=== PATIENT | female | born 1985 | race Caucasian/White ===

== ENCOUNTER 2017-02-27 19:45 | Emergency (ER) | payer OTHER ==
[~2017-02-27] VITALS: Ht 162.6 cm; Wt 78.5 kg
[~2017-02-27 19:45] MED LIST: BENA10TA25 PO; METF1000 PO; SIMV20TA1 PO; SITA100T8 PO
[2017-02-27 19:56] VITALS: BP 142/88
--- NOTE | 2017-02-27 20:05 | NUR ---
31 Y/O F W/C/O REDNESS AND BURNING PAIN WITH DISCHARGE TO R EYE X TODAY. PT DENIES ANY FEVER, CHILLS OR INJURY TO AFFECTED EYE. MED HX DM TYPE II AND HTN. NO S/S OF DISTRESS NOTED ER MED MADE AWARE.
--- NOTE | 2017-02-27 20:05 | NUR ---
Patient ambulated to bed 07.
--- NOTE | 2017-02-27 20:21 | NUR ---
Dr. Woods evaluating patient at bedside.
[2017-02-27] MEDS ORDERED: FLUORESCEIN OPTH STRIP 1 MG OP ONE (20:25)
[2017-02-27] MEDS ORDERED: TETRACAINE HCL/PF 0.5% OPTH 4 ML BTL OP ONE (20:25)
[2017-02-27] MEDS ORDERED: TETRACAINE HCL/PF 0.5% OPTH 4 ML BTL ONE (20:34)
[2017-02-27 20:47] VITALS: BP 133/86
--- NOTE | 2017-02-27 20:47 | NUR ---
Patient discharged with v/s stable. Written and verbal after care instructions given and explained. Patient alert, oriented and verbalized understanding of instructions. Ambulatory with steady gait. All questions addressed prior to discharge. ID band removed. Patient advised to follow up with PMD OR RETURN TO ER IF CONDITION WORSENS. Rx of ERYTHROMYCIN given. Patient educated on indication of medication including possible reaction and side effects. Opportunity to ask questions provided and answered.
== END 2017-02-27 20:47 | disposition home or self-care (01) ==
LOC: MED 19:45
DX: H10.31 Unspecified acute conjunctivitis, right eye (principal); E11.9 Type 2 diabetes mellitus without complications; I10 Essential (primary) hypertension; Z90.49 Acquired absence of other specified parts of digestive tract
CPT/HCPCS: 99283

== ENCOUNTER 2017-08-07 18:35 | Emergency (ER) | payer OTHER ==
[~2017-08-07] VITALS: Ht 162.6 cm; Wt 77.8 kg
[2017-08-07 18:51] VITALS: BP 123/83
--- NOTE | 2017-08-07 19:49 | NUR ---
PT TAKEN TO BED 10
[2017-08-07] MEDS ORDERED: guaiFENesin/CODEINE 100/10MG 5 ML UDC PO ONE (19:55)
[2017-08-07] MEDS ORDERED: IBUPROFEN 800 MG TAB PO ONE (19:55)
--- NOTE | 2017-08-07 19:58 | NUR ---
FLU SWAB COMPLETED AT BEDSIDE. PT TOLERATE TX WELL. GIVEN TO PHLEB DIGNA
--- NOTE | 2017-08-07 20:35 | NUR ---
PT CAME TO ED C/O FLU-LIKE SYMPTOMS OF NON-PRODUCTIVE COUGH, BODY ACHES, NASAL CONGESTION WITH CLEAR DISCHARGE, EAR PAIN X3 DAYS. PT DENIES SOB OR DIFFICULTY BREATHING. PT DENIES SOAR THROAT. MD AWARE. CONTINUE TO MONITOR.
[2017-08-07 21:07] VITALS: BP 136/93
--- NOTE | 2017-08-07 21:07 | NUR ---
Patient discharged with v/s stable. Written and verbal after care instructions given and explained. Patient alert, oriented and verbalized understanding of instructions. Ambulatory with steady gait. All questions addressed prior to discharge. ID band removed. Patient advised to follow up with PMD. Rx of NAPROXEN CODIENE given. Patient educated on indication of medication including possible reaction and side effects. Opportunity to ask questions provided and answered.
== END 2017-08-07 21:07 | disposition home or self-care (01) ==
LOC: MED 18:35
DX: J06.9 Acute upper respiratory infection, unspecified (principal); E11.9 Type 2 diabetes mellitus without complications; I10 Essential (primary) hypertension
CPT/HCPCS: 36415; 71045; 87804; 99285

== ENCOUNTER 2018-06-26 08:49 | Day surgery (SDC) | payer OTHER ==
[~2018-06-26] VITALS: Ht 163.8 cm; Wt 70.3 kg
[2018-06-26] MEDS ORDERED: CEFAZOLIN SODIUM 1 GM/D5W PM 50 ML IV SCH (09:25)
[2018-06-26] MEDS ORDERED: INSULIN LISPRO 100 UNITS/ML VIAL SUBQ SCH ×2 (09:55→11:20)
[2018-06-26] MEDS ORDERED: INSULIN REGULAR, HUMAN 100 UNIT/ML VIAL SUBQ ONE (11:00)
[2018-06-26] MEDS ORDERED: BUPIVACAINE-MPF/EPI 0.25% 30 ML VIAL INJ ONE (12:25)
[2018-06-26] MEDS ORDERED: PROPOFOL 200 MG/20 ML VIAL IV ONE (13:31)
[2018-06-26] MEDS ORDERED: fentaNYL 0.05 MG/ML VIAL ONE (13:43)
[2018-06-26] MEDS ORDERED: MIDAZOLAM 2 MG/2 ML VIAL ONE (13:43)
[2018-06-26] MEDS ORDERED: HYDROmorphone 1 MG/ML AMP IVP PRN ×2 (13:50→14:25)
[2018-06-26] MEDS ORDERED: ONDANSETRON 4 MG/2 ML VIAL IVP PRN (13:50)
[2018-06-26] MEDS ORDERED: MORPHINE SULFATE 4 MG/ML SYR IV PRN (14:25)
[2018-06-26] MEDS ORDERED: HYDROcodone/APAP 5/325 MG 1 TAB TAB PO PRN (14:25)
[2018-06-26] MEDS ORDERED: MORPHINE SULFATE 2 MG/ML SYR IVP PRN (14:25)
[2018-06-26] MEDS ORDERED: ONDANSETRON 4 MG/2 ML VIAL IV PRN (14:25)
[2018-06-26] MEDS ORDERED: ACETAMINOPHEN 325 MG TAB PO PRN (14:25)
== END 2018-06-26 15:24 | disposition home or self-care (01) ==
LOC: MDS 08:49 → MMU 08:50 → MDS 15:24
PROVIDERS: ATTEND Surgery
DX: Z30.46 Encounter for surveillance of implantable subdermal contraceptive (principal); E66.3 Overweight; I10 Essential (primary) hypertension; E11.9 Type 2 diabetes mellitus without complications; J45.909 Unspecified asthma, uncomplicated; K21.9 Gastro-esophageal reflux disease without esophagitis; G40.909 Epilepsy, unspecified, not intractable, without status epilepticus; M19.90 Unspecified osteoarthritis, unspecified site
CPT/HCPCS: 11982; 71045; 76000; 76881; 82948; J0690; J1815; J2250; J2704; J3010; J3490; J7030; Q0092

== ENCOUNTER 2018-09-14 02:28 | Emergency (ER) | payer OTHER ==
[~2018-09-14] VITALS: Ht 165.1 cm; Wt 73.9 kg
--- NOTE | 2018-09-14 02:31 | NUR ---
PT TAKEN TO BED 9
[2018-09-14 02:34] VITALS: BP 161/108
--- NOTE | 2018-09-14 02:54 | NUR ---
Dr. Saeed evaluating patient at bedside.
[2018-09-14] MEDS ORDERED: AMOXICILLIN 500 MG CAP PO ONE (03:00)
[2018-09-14] MEDS ORDERED: IBUPROFEN 800 MG TAB PO ONE (03:00)
[2018-09-14 03:12] VITALS: BP 161/108
--- NOTE | 2018-09-14 03:19 | NUR ---
Patient discharged with v/s stable. Written and verbal after care instructions given and explained. Patient alert, oriented and verbalized understanding of instructions. Ambulatory with steady gait. All questions addressed prior to discharge. ID band removed. Patient advised to follow up with PMD. Rx of Motrin and Amoxicillin given. Patient educated on indication of medication including possible reaction and side effects. Opportunity to ask questions provided and answered.
== END 2018-09-14 03:19 | disposition home or self-care (01) ==
LOC: MED 02:28
DX: J02.8 Acute pharyngitis due to other specified organisms (principal); H66.92 Otitis media, unspecified, left ear; B96.89 Other specified bacterial agents as the cause of diseases classified elsewhere; I10 Essential (primary) hypertension; E11.9 Type 2 diabetes mellitus without complications; Z79.84 Long term (current) use of oral hypoglycemic drugs; Z79.899 Other long term (current) drug therapy
CPT/HCPCS: 99283

== ENCOUNTER 2018-10-25 20:46 | Emergency (ER) | payer OTHER ==
[~2018-10-25] VITALS: Ht 152.4 cm; Wt 74.8 kg
[2018-10-25 20:51] VITALS: BP 128/80
--- NOTE | 2018-10-25 20:55 | NUR ---
TO LOBBY A/W BED, JESSICA GALICIA NOTED
--- NOTE | 2018-10-25 21:50 | NUR ---
PT TAKEN TO RAD AT THIS TIME
--- NOTE | 2018-10-25 21:57 | NUR ---
PT RETURNED TO ER FROM RAD VIA WHEELCHAIR
--- NOTE | 2018-10-25 22:10 | NUR ---
first contact with pt. pt presents to the ed w/c/o l foot pain. pt reports pain the arch of her l foot. no obvious deromaties noted. no lessions no cuts or abrasions. -redness. -swelling. cap refill <3. peripheral pulses present. +cms. pt has hx of DM. rr even/unlabored. NAD noted.
--- NOTE | 2018-10-25 22:13 | NUR ---
PT TO BED 12.
--- NOTE | 2018-10-25 22:19 | NUR ---
BS 225 AT THIS TIME. TRAVIS RODRIGUEZ MADE AWARE.
[2018-10-26 00:23] VITALS: BP 134/80
== END 2018-10-26 00:22 | disposition home or self-care (01) ==
LOC: MED 20:46
DX: M79.671 Pain in right foot (principal); R20.2 Paresthesia of skin; E11.9 Type 2 diabetes mellitus without complications; I10 Essential (primary) hypertension; Z79.84 Long term (current) use of oral hypoglycemic drugs; Z79.899 Other long term (current) drug therapy
CPT/HCPCS: 73630; 82948; 99283

== ENCOUNTER 2021-09-17 17:50 | Emergency (ER) | payer OTHER ==
[~2021-09-17] VITALS: Ht 162.6 cm; Wt 77.1 kg
[2021-09-17 17:59] VITALS: BP 135/84
--- NOTE | 2021-09-17 19:00 | NUR ---
PATIENT AMBULATED TO BED 4
--- NOTE | 2021-09-17 19:34 | NUR ---
RECEIVED HANDOFF FROM MARILOU PRADO
--- NOTE | 2021-09-17 19:59 | NUR ---
DR HORNER FROM [facility] PAGED FOR OPTHAMOLOGY CONSULT
--- NOTE | 2021-09-17 20:15 | NUR ---
[facility] CALLED FOR POSSIBLE TRANSFER FOR OPTHAMOLOGY ATTENTION ER TO ER TRANSFER AND BOTH ON DIVERSION
--- NOTE | 2021-09-17 20:24 | NUR ---
Patient does not wish to proceed with medical care recommended by DR. SOLIMAN . Patient given information related to possible complications, up to and including , which could occur as a result of leaving hospital at this time. Patient verbalizes understanding of risks involved leaving against medical advice. Patient has signed AMA form. PT PICKED UP BY FAMILY MEMBER.
[2021-09-17 20:26] VITALS: BP 135/84
== END 2021-09-17 20:16 | disposition left against medical advice (07) ==
LOC: MED 17:50
DX: H53.8 Other visual disturbances (principal); Z53.21 Procedure and treatment not carried out due to patient leaving prior to being seen by health care provider

== ENCOUNTER 2022-07-11 15:20 | Emergency (ER) | payer OTHER ==
[~2022-07-11] VITALS: Ht 162.6 cm; Wt 81.2 kg
[~2022-07-11 15:20] MED LIST changes: +METF-1274 PO; -METF1000 PO; +SIMV-372 PO; -SIMV20TA1 PO
[2022-07-11 15:37] VITALS: BP 129/81
--- NOTE | 2022-07-11 15:42 | NUR ---
PT AMBULATED TO ER BED 5
[2022-07-11] MEDS ORDERED: LOPERAMIDE 2 MG CAP PO ONE (16:25)
[2022-07-11] MEDS ORDERED: ONDANSETRON 4 MG ODT PO ONE (16:25)
--- NOTE | 2022-07-11 16:30 | NUR ---
37YO FEMALE C/O N/V/D-BLOOD AND THROBBING 8/10 ABDOMINAL PAIN XYESTERDAY . REPORTS SUDDEN ONSET LAST NIGHT. ABDOMEN NON TENDER OR DISTENDED. DENIES TAKING MEDICATION, CHEST PAIN , FEVER, CHILLS OR SOB. PT AAOX4, HOB POSITIONED PER COMFORT. HX: DIABETES NKA
[2022-07-11 16:37] LABS: BASOPHILS % (AUTO) 0.2 % (0.0-2.0); EOSINOPHILS # (AUTO) 0.2 K/uL (0-0.4); EOSINOPHILS % (AUTO) 2.4 % (0.0-4.0); HEMATOCRIT 36.1 % (36-48); HEMOGLOBIN 12.3 g/dL (12.0-16.0); MEAN CORPUSCULAR HEMOGLOBIN 30 pg (27-31); MEAN CORPUSCULAR HGB CONC 34 g/dL (33-37); MEAN CORPUSCULAR VOLUME 87.5 fL (80-94); MONOCYTES # (AUTO) 0.5 K/uL (0.8-1.0); MONOCYTES % (AUTO) 6.5 % (1.7-9.3); NEUTROPHILS # (AUTO) 5.7 K/uL (1.8-7.7); NEUTROPHILS % (AUTO) 76.9 % (42.2-75.2); PLATELET COUNT (AUTO) 204 K/uL (140-450); RED BLOOD CELL COUNT(AUTO) 4.12 MIL/uL (4.20-5.40); RED CELL DISTRIBUTION WIDTH 13.4 % (11.6-13.7); WHITE BLOOD COUNT (AUTO) 7.4 K/uL (4.8-10.8)
--- NOTE | 2022-07-11 16:50 | NUR ---
pt swabbed for covid(moses) and flu. handed to lab
[2022-07-11 17:12] LABS: ALBUMIN 3.7 g/dL (3.4-5.0); CARBON DIOXIDE 25.6 mmol/L (21-32); CREATININE 0.6 mg/dL (0.6-1.3); POTASSIUM 3.6 mmol/L (3.5-5.1); TOTAL BILIRUBIN 2.3 mg/dL (0.0-1.0)
[2022-07-11] MEDS ORDERED: LOPE-289 PO (17:27)
[2022-07-11] MEDS ORDERED: ONDA-188 SL (17:27)
[2022-07-11 17:59] VITALS: BP 125/78
--- NOTE | 2022-07-11 17:59 | NUR ---
Patient discharged with v/s stable. Written and verbal after care instructions FOR N/V/D given and explained. Patient alert, oriented and verbalized understanding of instructions. Ambulatory with to car. All questions addressed prior to discharge. ID band removed. Patient advised to follow up with PMD. Rx of ZOFRAN AND IMODIUM given. . Opportunity to ask questions provided and answered.
== END 2022-07-11 17:59 | disposition home or self-care (01) ==
LOC: MED 15:20
DX: R10.12 Left upper quadrant pain (principal); Z20.822 Contact with and (suspected) exposure to COVID-19; E11.9 Type 2 diabetes mellitus without complications; I10 Essential (primary) hypertension; Z79.4 Long term (current) use of insulin; Z79.899 Other long term (current) drug therapy
CPT/HCPCS: 36415; 80053; 81025; 83690; 85025; 87426; 87804; 99283; Q0162